=== PATIENT | male | born 2000 | race Hispanic/Latino ===

== ENCOUNTER 2020-06-23 19:21 | Emergency (ER) | payer OTHER, SELFPAY ==
--- NOTE | ~2020-06-23 | XR_ITS ---
EXAMINATION: XR elbow RT min 3V DATE: 06/23/2020 20:26 INDICATION: Right elbow injury. TECHNIQUE: 4 views of right elbow were obtained. COMPARISON: None. FINDINGS: Bone alignment is normal. No fracture. Joint spaces are well maintained. There is no elbow joint effusion. IMPRESSION: 1. No fracture. Reviewed, dictated and finalized at location A. IMPRESSION: 1. No fracture.
[2020-06-23 19:25] VITALS: BP 142/72; PULSE 65; RESP 19; TEMP 36.6; O2SAT 98
--- NOTE | 2020-06-23 20:32 | ED.GENADULT ---
HPI - General Adult General Chief complaint: Extremity Injury, Upper Stated complaint: elbow pain Time Seen by Provider: 06/23/20 19:27 Source: patient Mode of arrival: ambulatory Limitations: no limitations History of Present Illness HPI narrative: Patient is a 19-year-old male who presents to emergency department for evaluation of upper extremity injury noting over the last several days after arm wrestling an individual he developed right elbow pain patient has since had aching pain that is worse with activity and movement patient notes today while swinging a golf club he had increasing pain patient denies other injury or trauma or similar occurrence in the past Related Data Allergies Allergy/AdvReac Type Severity Reaction Status Date / Time No Known Allergies Allergy Verified 06/23/20 19:38 Review of Systems Review of Systems: All systems reviewed & are unremarkable except as noted in HPI and below PMFSH Social History Social History (Updated 06/23/20 @ 20:33 by Suraj Lomeli PA-C) Smoking status: Never smoker Gender identity (if verbalized by the patient): Male Exam Narrative: Exam Narrative: GENERAL: Well-appearing, well-nourished, and in no acute distress. HEAD: Normocephalic, atraumatic. EYES: PERRLA and EOMI. ENT: Nares clear, no rhinorrhea or epistaxis. Mucous membranes moist. EXTREMITIES: Normal range of motion. No edema. Tenderness of the anterior right elbow no deformities noted SKIN: Warm, dry, no rash. NEURO: No focal deficits. Alert and oriented x3. Neurovascularly intact. Capillary refill less than 2 seconds PSYCH: Normal mood and affect. Course Course Emergency Course: Patient in the room in no distress aware of case findings treatment plan diagnosis Vital Signs Vital signs: Vital Signs Temperature 97.8 F 06/23/20 19:25 Pulse Rate 65 06/23/20 19:25 Respiratory Rate 06/23/20 19:25 Blood Pressure 142/72 H 06/23/20 19:25 Pulse Oximetry 98 06/23/20 19:25 Temperature 97.8 F 06/23/20 19:25 Pulse Rate 65 06/23/20 19:25 Respiratory Rate 06/23/20 19:25 Blood Pressure 142/72 H 06/23/20 19:25 Pulse Oximetry 98 06/23/20 19:25 Medical Decision Making MDM Narrative Medical decision making narrative: Patients injury or pain is consistent with musculoskeletal etiology. No signs of neurological or vascular compromise on exam. Compartments and tisues are soft without signs of compartment syndrome. Pain is felt appropriate for further evaluation on an outpatient basis. Vital Signs Vital Signs: Vital Signs Temperature 97.8 F 06/23/20 19:25 Pulse Rate 65 06/23/20 19:25 Respiratory Rate 06/23/20 19:25 Blood Pressure 142/72 H 06/23/20 19:25 Pulse Oximetry 98 06/23/20 19:25 Temperature 97.8 F 06/23/20 19:25 Pulse Rate 65 06/23/20 19:25 Respiratory Rate 06/23/20 19:25 Blood Pressure 142/72 H 06/23/20 19:25 Pulse Oximetry 98 06/23/20 19:25 Imaging Data Radiologist's impression: ITS Impressions Elbow X-Ray 06/23/20 20:27 IMPRESSION: 1. No fracture. Discharge Plan Discharge Clinical Impression: Strain of elbow, right Patient Disposition: Home, Self-Care Condition: Stable Instructions: Antibiotic Form, Muscle Strain (DC) Additional Instructions: Follow-up with orthopedic surgery tomorrow by phone to set up for reevaluation Return if symptoms worsen or concerns Only take medications as directed Follow patient education sheet Prescriptions: New ibuprofen [IBU] 600 mg tablet 600 mg PO QID PRN (Reason: fever or pain) Qty: 7 RF: 0 Follow-up/Referrals: PHYSICIAN,[employer] [facility]RARIAN [Primary Care Provider] - Igor Young MD [Physician] -
[2020-06-23 20:46] VITALS: BP 125/78; PULSE 79; RESP 17; O2SAT 99
== END 2020-06-23 20:47 | disposition home or self-care (01) ==
PROVIDERS: Emergency Provider Emergency Medicine
DX: S46.911A Strain of unspecified muscle, fascia and tendon at shoulder and upper arm level, right arm, initial encounter (principal); X50.0XXA Overexertion from strenuous movement or load, initial encounter
CPT/HCPCS: 73080; 99283

== ENCOUNTER 2022-04-18 14:23 | Emergency (ER) | payer OTHER, SELFPAY ==
[2022-04-18 14:38] VITALS: BP 132/77; PULSE 69; RESP 16; TEMP 36.4; O2SAT 99
--- NOTE | 2022-04-18 14:40 | ED.MALEGU ---
HPI - Male Genitourinary General Chief complaint: Urogenital-Male Stated complaint: std testing Time Seen by Provider: 04/18/22 14:40 Source: patient, RN notes reviewed and old records reviewed Mode of arrival: ambulatory Limitations: no limitations History of Present Illness HPI Narrative: 21-year-old male presents to the [facility] with no symptoms but wanting STD testing. Reports having unprotected sex last week. Denies any symptoms states I just want to get tested. States that he contacted [facility] and they cannot see him until next week. Related Data Sexually active: Yes Allergies Allergy/AdvReac Type Severity Reaction Status Date / Time No Known Allergies Allergy Verified 04/18/22 15:03 Review of Systems Review of Systems: All systems reviewed & are unremarkable except as noted in HPI and below Constitutional: Constitutional: Reports no additional constitutional complaints, Denies chills and Denies fever(s) Eyes: Eyes: Reports no additional eye complaints ENT: Reports system reviewed and no additional complaints, except as documented Cardiovascular: Cardiovascular: Reports no additional cardiovascular complaints Respiratory: Respiratory: Reports no additional respiratory complaints Gastrointestinal: Gastrointestinal: Reports no additional gastrointestinal complaints Musculoskeletal: Musculoskeletal: Reports no additional musculoskeletal complaints Integumentary/Breasts: Skin/Breast: Reports system reviewed and no additional complaints, except as docu Neurologic: Reports system reviewed and no additional complaints, except as documented Psychiatric: Psychiatric: Reports no additional psychiatric complaints Allergic/Immunologic: Allergic/Immunologic: Reports no additional allergic/immunologic complaints PMFSH Past Medical History Medical History Patient denies medical problems Surgical History Surgical History (Updated 04/18/22 @ 20:33 by Kamla Wilson APRN) No pertinent past surgical history Social History Social History Smoking status: Never smoker Gender identity (if verbalized by the patient): Male Comments At the time of my signature, I reviewed and agree with the nursing past medical, surgical, social, and family history. There is no relevant family history pertinent to the patient complaint. Exam Const: General: healthy appearing, no acute distress and alert Nutritional Appearance: well nourished Orientation/consciousness: patient oriented x3 Limitations: no limitations HENMT: Head: normal to inspection Ears: external ears normal General nose exam: Normal external nose present Eyes: General: appearance normal, both eyes and all related structures Pupils: Equal, round and reactive pupils present Neck: Neck: normal visual inspection, no lymphadenopathy and no meningeal signs Chest: Chest palpation & inspection: normal inspection of the chest Resp: Effort & Inspection: normal respiratory effort and no use of accessory muscles Auscultation: clear to auscultation bilaterally, no crackles, no rales, no rhonchi and no wheezes Cardio: Rate: regular rate Rhythm: regular rhythm GI: GI Palp: Yes Soft to palpation and No Tenderness to palpation present (GI) : General: Yes no CVA tenderness Male General Exam: Yes normal external exam Penis: Yes normal penis, Yes uncircumcised, No Localized penile swelling present and No Genital lesions present Other: Chaperoned by [employer]NA[employer] student Ese Back/Spine/Pelvis: Cervical Spine: normal cervical lordosis Thoracic/Lumbar Spine: thoracic and lumbar spine normal to inspection Skin: General skin exam: normal color Rashes: no rashes Wounds: no wounds Neuro: General: patient oriented x3, moves all extremities, no meningeal signs and no focal motor deficits Cranial nerves: Yes Equal, round and reactive pupils present Spee
== END 2022-04-18 14:50 | disposition home or self-care (01) ==
PROVIDERS: Emergency Provider Nurse Practitioner
DX: Z20.2 Contact with and (suspected) exposure to infections with a predominantly sexual mode of transmission (principal)
CPT/HCPCS: 87491; 87591; 87661; 99213; G0463